=== PATIENT | female | born 1975 | race African-American/Black ===

== ENCOUNTER 2018-10-09 23:16 | Inpatient (IN) | payer MEDICARE, MEDICAID ==
[~2018-10-09] VITALS: Ht 167.6 cm; Wt 140.7 kg
[~2018-10-09 23:16] MED LIST: AMLODIPINE; CARVEDILOL; EPIVIR; FURO40TA5 PO; LASIX; LISINOPRIL; PROC10TA17 PO; ZIAGEN; norvir; prezista
[2018-10-10 02:49] LABS: HEMATOCRIT. 25.5 % (36.0-48.0); MEAN CORPUSCULAR HEMOGLOBIN 29.6 pg (28.0-32.0); MEAN CORPUSCULAR VOLUME 94.4 fL (81.0-99.0); MEAN PLATELET VOLUME 8.2 fl (7.4-10.4); PLATELET 338 x1000/uL (130-400); RED CELL DISTRIBUTION WIDTH 16.5 % (11.6-14.6)
[2018-10-10 02:53] LABS: CHLORIDE 96 mEq/L (98-107); INR 1.4; PROTHROMBIN TIME 13.9 sec (9.1-11.1)
[2018-10-10 02:54] LABS: HCG SCREEN NEGATIVE
[2018-10-10 03:01] LABS: PLATELET ESTIMATE NORMAL
[2018-10-10] MEDS ORDERED: VANCOMYCIN 1 G PREMIX 200 ML IV ONE (03:45)
[2018-10-10] MEDS ORDERED: PIPERACILLIN/TAZ 3.375G PREMIX 50 ML IV ONE (03:45)
[2018-10-10] MEDS ORDERED: IOHEXOL-300 100 ML BOTTLE ONE (07:26)
[2018-10-10] MEDS ORDERED: HYDROCODONE/ACETAMINOPHEN 5/325MG TABLET PO NR (09:00)
[2018-10-10] MEDS ORDERED: CLONIDINE 0.1MG TABLET PO PRN (11:00)
[2018-10-10] MEDS ORDERED: ONDANSETRON HCL 4MG/2ML INJ IV PRN (11:00)
[2018-10-10] MEDS ORDERED: ACETAMINOPHEN 325MG TABLET PO PRN (11:00)
[2018-10-10] MEDS ORDERED: LEVOFLOXACIN 250MG PREMIX 50 ML IV SCH (11:00)
[2018-10-10] MEDS ORDERED: METRONIDAZOLE 500 MG PREMIX 100 ML IV SCH (11:00)
[2018-10-10] MEDS: HYDROCODONE/ACETAMINOPHEN 5/325MG TABLET PO PRN (18:53)
[2018-10-10] MEDS ORDERED: ZOSYN PER PHARMACY XX SCH (21:00)
[2018-10-10] MEDS ORDERED: PIPERACILLIN/TAZ 2.25G PREMIX 50 ML IV SCH (22:00)
[2018-10-10] MEDS: FOLIC ACID/VITAMIN B COMP W-C TABLET PO SCH (22:03)
[2018-10-10] MEDS: EPOETIN ALFA 4000UNITS/ML VIAL SUBCUT SCH (22:03)
[2018-10-10 22:41] VITALS: BP 158/88
[2018-10-10] MEDS ORDERED: VANCOMYCIN 1 G PREMIX 200 ML IV SCH (23:00)
[2018-10-11] VITALS (55 sets, daily range): BP systolic 66–141; BP diastolic 30–105
[2018-10-11] MEDS: VANCOMYCIN HCL 1000 MG/20 ML ORAL PO SCH ×4 (00:16→17:24)
[2018-10-11] MEDS: SODIUM CHLORIDE 0.9% INJ 3ML FLUSH IVF SCH ×4 (00:17→21:48)
[2018-10-11] MEDS ORDERED: PIPERACILLIN/TAZ 2.25G PREMIX 50 ML IV SCH (01:00)
[2018-10-11] MEDS: PIPERACILLIN/TAZ 2.25G PREMIX 50 ML IV SCH ×3 (05:55→21:47)
[2018-10-11] MEDS: FOLIC ACID/VITAMIN B COMP W-C TABLET PO SCH (09:00)
[2018-10-11] MEDS ORDERED: METOPROLOL TARTRATE 25MG TABLET PO NR (11:00)
[2018-10-11] MEDS ORDERED: SODIUM CHLORIDE 0.9% 500 ML IV NR (11:00)
[2018-10-11 11:03] LABS: HEMATOCRIT. 27.5 % (36.0-48.0); MEAN CORPUSCULAR HEMOGLOBIN 30.4 pg (28.0-32.0); MEAN PLATELET VOLUME 8.8 fl (7.4-10.4); PLATELET 426 x1000/uL (130-400); RED BLOOD CELL COUNT 2.95 mill/uL (4.2-5.4); RED CELL DISTRIBUTION WIDTH 17.2 % (11.6-14.6)
[2018-10-11 11:32] LABS: CHLORIDE 95 mEq/L (98-107)
[2018-10-11 11:46] LABS: CREATINE KINASE 128 IU/L (26-192)
[2018-10-11] MEDS: NOREPINEPHRINE 16 MG in DEXT 5% WATER 234 ML IV PRN (14:07)
[2018-10-11 15:31] LABS: PLATELET ESTIMATE INCREASED
[2018-10-11] MEDS ORDERED: VANCOMYCIN HCL 1000 MG/20 ML ORAL PO SCH (18:00)
[2018-10-11 18:07] LABS: BG BASE EXCESS -6.1 mmol/L (-2.0-2.0); BG CARBOXYHEMOGLOBIN 1.9 % (0.5-1.5); BG DEOXYHEMOGLOBIN 8.4 % (0.0-5.0); BG HCO3 ACT 19.3 mmol/L (22.0-26.0); BG METHEMOGLOBIN 0.3 % (0.0-1.5); BG OXYGEN SATURATION 91.4 % (92.0-98.5); BG OXYHEMOGLOBIN 89.4 % (94.0-97.0); BG PCO2 37.7 mmHg (35.0-45.0); BG PH 7.327 (7.350-7.450); BG PO2 67.5 mmHg (75.0-100.0); BG SAMPLE SITE LEFT RADIAL; BG TOTAL HEMOGLOBIN 9.3 g/dL (12.0-18.0); BG VENT MODE NASAL CANNULA
[2018-10-11] MEDS ORDERED: METOPROLOL TARTRATE 25MG TABLET PO SCH (21:00)
[2018-10-11] MEDS ORDERED: PHENYLEPHRINE 40 MG in DEXT 5% WATER 500 ML IV PRN (23:00)
[2018-10-12] VITALS (97 sets, daily range): BP systolic 80–187; BP diastolic 15–140
[2018-10-12] MEDS ORDERED: PHENYLEPHRINE 80 MG in DEXT 5% WATER 492 ML IV PRN ×4
[2018-10-12] MEDS: VANCOMYCIN HCL 1000 MG/20 ML ORAL PO SCH ×5 (00:07→23:52)
[2018-10-12] MEDS: NOREPINEPHRINE 16 MG in DEXT 5% WATER 234 ML IV PRN (04:11)
[2018-10-12] MEDS: PIPERACILLIN/TAZ 2.25G PREMIX 50 ML IV SCH (05:26)
[2018-10-12] MEDS: SODIUM CHLORIDE 0.9% INJ 3ML FLUSH IVF SCH ×3 (05:26→20:51)
[2018-10-12] MEDS: HYDROCODONE/ACETAMINOPHEN 5/325MG TABLET PO PRN ×4 (06:41→23:52)
[2018-10-12 06:44] LABS: HEMOGLOBIN. 9.4 g/dL (12.0-16.0); MEAN CORPUSCULAR HEMOGLOBIN 30.4 pg (28.0-32.0); MEAN CORPUSCULAR VOLUME 93.4 fL (81.0-99.0); PLATELET 401 x1000/uL (130-400); RED CELL DISTRIBUTION WIDTH 16.8 % (11.6-14.6)
[2018-10-12 07:43] LABS: PHOSPHORUS 8.9 mg/dL (2.5-4.9)
[2018-10-12 08:12] LABS: NUCLEATED RED BLOOD CELLS 1 /100 WBC; PLATELET ESTIMATE INCREASED
[2018-10-12] MEDS ORDERED: SODIUM CHLORIDE 0.9% 500 ML IV NR (11:00)
[2018-10-12 12:32] LABS: T4 FREE 0.71 ng/dL (0.76-1.46)
[2018-10-12] MEDS: MEROPENEM 1,000 MG in SODIUM CHLORIDE 0.9% 100 ML IV SCH (13:32)
[2018-10-12] MEDS: FOLIC ACID/VITAMIN B COMP W-C TABLET PO SCH (13:32)
[2018-10-12] MEDS: NYSTATIN POWDER 15GM TOP SCH ×2 (13:32→17:57)
[2018-10-12 15:57] LABS: CREATINE KINASE MB FRACTION 2.4 ng/mL (0.5-3.6)
[2018-10-12 17:08] LABS: % CD 3 POS. LYMPHOCYTES 36.8 % (57.5-86.2); % CD 4 POS. LYMPHOCYTES 11.9 % (30.8-58.5); % CD 8 POS. LYMPH 24.3 % (12.0-35.5); CD4/CD8 RATIO 0.49 (0.92-3.72)
[2018-10-12] MEDS ORDERED: MORPHINE SULFATE 4 MG/ML CPJ (NOT FOR IM USE) IV PRN (19:28)
[2018-10-12] MEDS: EPOETIN ALFA 4000UNITS/ML VIAL SUBCUT SCH (19:44)
[2018-10-12 21:45] LABS: BG BASE EXCESS 0.8 mmol/L (-2.0-2.0); BG CARBOXYHEMOGLOBIN 1.5 % (0.5-1.5); BG DEOXYHEMOGLOBIN 5.4 % (0.0-5.0); BG FRACTION INSPIRED OXYGEN 28; BG HCO3 ACT 24.8 mmol/L (22.0-26.0); BG METHEMOGLOBIN 0.3 % (0.0-1.5); BG OXYGEN SATURATION 94.5 % (92.0-98.5); BG OXYHEMOGLOBIN 92.8 % (94.0-97.0); BG PCO2 37.5 mmHg (35.0-45.0); BG PH 7.439 (7.350-7.450); BG PO2 73.1 mmHg (75.0-100.0); BG SAMPLE SITE RIGHT RADIAL; BG TOTAL HEMOGLOBIN 10.7 g/dL (12.0-18.0); BG VENT MODE NASAL CANNULA
[2018-10-12] MEDS ORDERED: LORAZEPAM 2MG/ML CPJ IV PRN (22:00)
[2018-10-12] MEDS ORDERED: HALOPERIDOL LACTATE 5MG/ML VIAL IM PRN (22:00)
[2018-10-12] MEDS ORDERED: DIPHENHYDRAMINE 50MG/ML VIAL IV PRN (22:00)
[2018-10-12 22:59] LABS: CREATINE KINASE MB FRACTION 2.7 ng/mL (0.5-3.6)
[2018-10-12] MEDS ORDERED: MAGNESIUM/ALUMINUM HYDROXIDE/SIMETHICONE 30ML UDC PO SCH (23:30)
[2018-10-13] VITALS (55 sets, daily range): BP systolic 71–148; BP diastolic 40–88
[2018-10-13] MEDS: NOREPINEPHRINE 16 MG in DEXT 5% WATER 234 ML IV PRN (04:32)
[2018-10-13] MEDS: VANCOMYCIN HCL 1000 MG/20 ML ORAL PO SCH ×2 (06:20→12:25)
[2018-10-13] MEDS: SODIUM CHLORIDE 0.9% INJ 3ML FLUSH IVF SCH (06:21)
[2018-10-13] MEDS: NYSTATIN POWDER 15GM TOP SCH ×2 (08:26→12:25)
[2018-10-13] MEDS: FOLIC ACID/VITAMIN B COMP W-C TABLET PO SCH (08:26)
[2018-10-13 08:46] LABS: HEMATOCRIT. 33.1 % (36.0-48.0); HEMOGLOBIN. 10.6 g/dL (12.0-16.0); MEAN CORPUSCULAR VOLUME 93.5 fL (81.0-99.0); PLATELET 436 x1000/uL (130-400); RED BLOOD CELL COUNT 3.54 mill/uL (4.2-5.4); RED CELL DISTRIBUTION WIDTH 17.2 % (11.6-14.6)
[2018-10-13 08:59] LABS: CHLORIDE 89 mEq/L (98-107)
[2018-10-13 09:06] LABS: ABSOLUTE BASOPHILS 0.3 x10E3/uL (0.0-0.2); ABSOLUTE CD 3 1251 /uL (622-2402); ABSOLUTE CD 4 HELPER 405 /uL (359-1519); ABSOLUTE CD 8 SUPPRESSOR 826 /uL (109-897); ABSOLUTE LYMPHOCYTES 3.4 x10E3/uL (0.7-3.1); ABSOLUTE MONOCYTES 2.1 x10E3/uL (0.1-0.9); ABSOLUTE NEUTROPHILS 19.9 x10E3/uL (1.4-7.0); BASOPHILS 1 % (Not Estab.); LYMPHOCYTES 13 % (Not Estab.); MONOCYTES 8 % (Not Estab.); NEUTROPHILS 76 % (Not Estab.)
[2018-10-13 09:08] LABS: AMYLASE 63 IU/L (25-115); CREATINE KINASE 615 IU/L (26-192)
[2018-10-13 09:10] LABS: CREATINE KINASE MB FRACTION 19.8 ng/mL (0.5-3.6)
[2018-10-13 09:21] LABS: PLATELET ESTIMATE INCREASED
[2018-10-13 09:22] LABS: PHOSPHORUS 9.7 mg/dL (2.5-4.9)
[2018-10-13 09:44] LABS: BG BASE EXCESS 0.7 mmol/L (-2.0-2.0); BG CARBOXYHEMOGLOBIN 2.2 % (0.5-1.5); BG DEOXYHEMOGLOBIN 7.8 % (0.0-5.0); BG HCO3 ACT 26.9 mmol/L (22.0-26.0); BG METHEMOGLOBIN 0.3 % (0.0-1.5); BG OXYHEMOGLOBIN 89.7 % (94.0-97.0); BG PCO2 49.9 mmHg (35.0-45.0); BG PH 7.349 (7.350-7.450); BG SAMPLE SITE LEFT RADIAL; BG TOTAL HEMOGLOBIN 11.2 g/dL (12.0-18.0); BG VENT MODE NASAL CANNULA
[2018-10-13] MEDS ORDERED: IPRATROPIUM/ALBUTEROL 0.5-3(2.5)MG/3ML NEB HHN PRN (09:45)
[2018-10-13] MEDS ORDERED: ENOXAPARIN 150MG/ML SYR SUBCUT SCH (10:00)
[2018-10-13] MEDS ORDERED: PANTOPRAZOLE SODIUM 40 MG/VIAL IV SCH (11:30)
[2018-10-13] MEDS ORDERED: ASPIRIN 81MG EC TABLET PO SCH (11:45)
[2018-10-13] MEDS ORDERED: IPRATROPIUM/ALBUTEROL 0.5-3(2.5)MG/3ML NEB HHN SCH (12:00)
[2018-10-13] MEDS: MEROPENEM 1,000 MG in SODIUM CHLORIDE 0.9% 100 ML IV SCH (12:24)
[2018-10-13] MEDS ORDERED: MIDODRINE HCL 5MG TABLET PO SCH (13:00)
[2018-10-13] MEDS ORDERED: VANCOMYCIN HCL 1000 MG/20 ML ORAL PO SCH (14:00)
[2018-10-13] MEDS ORDERED: METRONIDAZOLE 500 MG PREMIX 100 ML IV SCH (14:00)
[2018-10-13] MEDS ORDERED: EPINEPHRINE 0.1MG/ML (1:10,000) 10ML SYR ONE ×2 (15:09→15:26)
[2018-10-13] MEDS ORDERED: SODIUM BICARBONATE 7.5% 0.9 MEQ/ML 50ML SYR IV ONE ×2 (15:09→15:26)
[2018-10-14 08:14] LABS: HEMATOCRIT 26.1 % (34.0-46.6); HEMOGLOBIN 8.6 g/dL (11.1-15.9); MEAN CORPUSCULAR HEMOGLOBIN 29.7 pg (26.6-33.0); MEAN CORPUSCULAR VOLUME 90 fL (79-97); PLATELETS 483 x10E3/uL (150-379); RED CELL DISTRIBUTION WIDTH 16.4 % (12.3-15.4); WBC 26.2 x10E3/uL (3.4-10.8)
[2018-10-14 09:06] LABS: A/G RATIO 0.4 (0.7-1.7); ALBUMIN 2.2 g/dL (2.9-4.4); ALPHA-1-GLOBULIN 0.7 g/dL (0.0-0.4); ALPHA-2-GLOBULIN 1.7 g/dL (0.4-1.0); BETA GLOBULIN 0.8 g/dL (0.7-1.3); GAMMA GLOBULINS 1.7 g/dL (0.4-1.8); IMMUNOGLOBULIN A 227 mg/dL (87-352); IMMUNOGLOBULIN G 1841 mg/dL (700-1600); IMMUNOGLOBULIN M 90 mg/dL (26-217); M-SPIKE Not Observed g/dL (Not Observed); TOTAL PROTEIN SERUM 7.2 g/dL (6.0-8.5); VITAMIN D 25-OH 19.7 ng/mL (30.0-100.0)
[2018-10-17 13:06] LABS: VITAMIN D 1-25 DIHYDROXY 52.8 pg/mL (19.9-79.3)
== END 2018-10-13 13:57 | disposition expired | DRG 871 ==
LOC: ER 23:16 → 8WST 10-10 05:24 → EDBEDREQTM 10-10 05:41 → EDBEDREQ 10-10 05:41 → ENRESERV 10-10 21:23 → MICUSO 10-11 12:52
PROVIDERS: ADMIT Internal Medicine; ATTEND Internal Medicine
PROC: 5A1D70Z Performance of Urinary Filtration, Intermittent, Less than 6 Hours Per Day (ICD-10-PCS; 2018-10-10)
PROC: 5A09457 Assistance with Respiratory Ventilation, 24-96 Consecutive Hours, Continuous Positive Airway Pressure (ICD-10-PCS; 2018-10-11)
PROC: 5A1D70Z Performance of Urinary Filtration, Intermittent, Less than 6 Hours Per Day (ICD-10-PCS; 2018-10-11)
PROC: 02HV33Z Insertion of Infusion Device into Superior Vena Cava, Percutaneous Approach (ICD-10-PCS; 2018-10-11)
PROC: B548ZZA Ultrasonography of Superior Vena Cava, Guidance (ICD-10-PCS; 2018-10-11)
PROC: 0BH17EZ Insertion of Endotracheal Airway into Trachea, Via Natural or Artificial Opening (ICD-10-PCS; principal; 2018-10-13)
PROC: 5A2204Z Restoration of Cardiac Rhythm, Single (ICD-10-PCS; 2018-10-13)
PROC: 5A1D70Z Performance of Urinary Filtration, Intermittent, Less than 6 Hours Per Day (ICD-10-PCS; 2018-10-13)
PROC: 5A12012 Performance of Cardiac Output, Single, Manual (ICD-10-PCS; 2018-10-13)
DX: A41.9 Sepsis, unspecified organism (principal); J96.20 Acute and chronic respiratory failure, unspecified whether with hypoxia or hypercapnia; E43 Unspecified severe protein-calorie malnutrition; R65.21 Severe sepsis with septic shock; G92 Toxic encephalopathy; N18.6 End stage renal disease; I21.4 Non-ST elevation (NSTEMI) myocardial infarction; A04.72 Enterocolitis due to Clostridium difficile, not specified as recurrent; I12.0 Hypertensive chronic kidney disease with stage 5 chronic kidney disease or end stage renal disease; I42.9 Cardiomyopathy, unspecified; Z68.43 Body mass index [BMI] 50.0-59.9, adult; D63.1 Anemia in chronic kidney disease; E11.22 Type 2 diabetes mellitus with diabetic chronic kidney disease; E66.01 Morbid (severe) obesity due to excess calories; E83.39 Other disorders of phosphorus metabolism; E83.52 Hypercalcemia; E87.5 Hyperkalemia; F17.200 Nicotine dependence, unspecified, uncomplicated; G47.33 Obstructive sleep apnea (adult) (pediatric); I25.10 Atherosclerotic heart disease of native coronary artery without angina pectoris; I27.20 Pulmonary hypertension, unspecified; I95.3 Hypotension of hemodialysis; K57.90 Diverticulosis of intestine, part unspecified, without perforation or abscess without bleeding; K82.8 Other specified diseases of gallbladder; Z82.49 Family history of ischemic heart disease and other diseases of the circulatory system; Z83.3 Family history of diabetes mellitus; Z99.2 Dependence on renal dialysis; Z79.899 Other long term (current) drug therapy; Z21 Asymptomatic human immunodeficiency virus [HIV] infection status
CPT/HCPCS: 36415; 36569; 36600; 71045; 74176; 74177; 76937; 78582; 80048; 80061; 80069; 80202; 82140; 82150; 82270; 82306; 82330; 82375; 82550; 82553; 82652; 82784; 82805; 82962; 83036; 83605; 83735; 83880; 83970; 84100; 84134; 84145; 84155; 84165; 84439; 84443; 84484; 84703; 85379; 86334; 86359; 86360; 87045; 87493; 89055; 93005; 93306; 93970; 94640; 94660; 96365; 96366; 96367; 99284; 99285; A9558; C1725; C9113; J0885; J1650; J2185; J2270; J2370; J2405; J2543; J3370; J3490; J7040; J7050; J7060; J7620; Q9967